=== PATIENT | male | born 1985 | race Two or more races ===

== ENCOUNTER 2016-06-09 16:05 | Emergency (ER) | payer MEDICAID ==
[~2016-06-09] VITALS: Ht 175.3 cm; Wt 97.5 kg
[2016-06-09 16:42] VITALS: BP 134/82
--- NOTE | 2016-06-09 17:11 | Emergency Room Report ---
History of Present Illness General Chief Complaint: Animal Bite Source: Patient Present Illness HPI The patient is a 30-year-old male presenting for squirrel bite and right shoulder pain. The patient states that he was walking on the street when a squirrel jumped up and bit the left middle finger. The patient noted bleeding at that time. The patient denies any pain to the finger. Patient unsure of last tetanus shot. The patient also admits to right shoulder pain which began 1 month prior while lifting weights. Pain is described as a 5/10 dull ache and is worse with movement of the shoulder. It does not radiate. No numbness or tingling. Pt denies any other symptoms including F, chills, CP, SOB Allergies: Coded Allergies: No Known Allergies (Unverified , 06/09/16) Patient History Past Medical History: see triage record Pertinent Family History: none Reviewed Nursing Documentation: PMH: Agreed, PSxH: Agreed Nursing Documentation-PMH Past Medical History: No Stated History Review of Systems All Other Systems: negative except mentioned in HPI Physical Exam Vital Signs Date Time Temp Pulse Resp B/P Pulse Ox O2 Delivery O2 Flow Rate FiO2 06/09/16 16:33 97.3 86 18 134/82 98 Room Air Sp02 EP Interpretation: reviewed, normal General Appearance: no apparent distress, alert, GCS 15, non-toxic Head: normocephalic, atraumatic Eyes: bilateral eye PERRL, bilateral eye normal inspection ENT: hearing grossly normal, normal pharynx, no angioedema, normal voice Musculoskeletal: back normal, gait/station normal, normal range of motion, tender - TTP over anterior R deltoid Neurologic: alert, oriented x3, responsive, motor strength/tone normal, sensory intact, speech normal Psychiatric: judgement/insight normal, memory normal, mood/affect normal, no suicidal/homicidal ideation Reflexes: 3+ bicep (R), 3+ bicep (L), 3+ tricep (R), 3+ tricep (L), 3+ knee (R) , 3+ knee (L) Skin: warm/dry, normal turgor, abrasions - 1cm abrasion to palmar surface of L 3rd distal digit Lymphatic: no adenopathy Procedures Splinting Splinting : Consent: Verbal Location: R shoulder Splint: sling Pre-Proc Neuro Vasc Exam: normal Post-Proc Neuro Vasc Exam: normal Patient Tolerated: Well Complications: None Medical Decision Making PA Attestation Dr. Sebastian is my supervising physician. Patient management was discussed with my supervising physician Diagnostic Impression: Primary Impression: Bite by animal Additional Impression: Right shoulder strain ER Course The patient is a 30-year-old male presenting for squirrel bite and right shoulder pain. Ddx considered include but not limited to sprain/strain, fracture, contusion, abrasion, laceration, cellulitis Physical exam: Vitals within normal limits. No apparent distress. Right shoulder: Full active range of motion. Sensation intact. No edema or erythema. There is tenderness to palpation over anterior deltoid. No obvious deformity. Left third digit: There is an abrasion of the distal finger. No active bleeding. Sensation intact. No edema Right shoulder is placed in a sling. X-ray of shoulder is unremarkable. The wound is cleaned with normal saline and Betadine. Patient is given a tetanus shot The patient will be discharged home with a prescription for Augmentin and Motrin. Patient is advised to obtain referral for MRI. ER precautions are given Other X-Ray Diagnostic Results Other X-Ray Diagnostic Results : X-Ray Ordered: R shoulder Date: Jun 09, 2016 EP Interpretation: Yes Findings: no fractures, no dislocation, no soft tissue swelling Number of Views: 3 PA Scribe Text I am acting as scribe for my supervising physician. My supervising physician's interpretation of the R shoulder xrays are there are no fractures, dislocations or soft tissue swelling. Last Vital Signs Date Time Temp Pulse Resp B/P Pulse Ox O2 Delivery O2 Flow Rate FiO2 06/09/16 16:33 97.3 86 18 134/82 98 Room Air Status: improved Disposition: HOME, SELF-CARE Condition: Improved Scripts Amoxicillin/Potassium Clav 500-125 Tablet* (AUGMENTIN 500-125 TABLET*) 1 Each Tablet 1 TAB ORAL THREE TIMES A DAY, #15 TAB Prov: TERJAZMYNANLISA P.A. 06/09/16 Ibuprofen* (MOTRIN*) 600 Mg Tablet 600 MG ORAL Q8H Y for For Pain, #30 TAB 0 Refills Prov: TERZIAN,LISA P.A. 06/09/16 TERJAZMYNANSHIELAY P.A. Jun 09, 2016 17:11
[2016-06-09] MEDS: Ketorolac 30mg Inj IM ONE ×2 (17:15→17:47)
[2016-06-09] MEDS ORDERED: TdaP Vaccine 0.5ml Syr IM ONE (17:15)
[2016-06-09] MEDS ORDERED: AUGMENTIN 500-1 EACH ORAL (18:37)
[2016-06-09] MEDS ORDERED: IBUPROFEN600 MG ORAL (18:37)
[2016-06-09 18:42] VITALS: BP 128/76
[2016-06-09 18:51] VITALS: BP 128/76
--- NOTE | 2016-06-10 10:13 | Diagnostic Imaging Report ---
Indication: PAIN Technique: 3 views of the left shoulder Comparison: None Findings: No acute fractures or dislocations. Joint spaces are preserved. Impression: Negative
== END 2016-06-09 18:51 | disposition home or self-care (01) ==
LOC: EMR 17:09
DX: S41.051A Open bite of right shoulder, initial encounter (principal); S61.253A Open bite of left middle finger without damage to nail, initial encounter; S46.911A Strain of unspecified muscle, fascia and tendon at shoulder and upper arm level, right arm, initial encounter; W53.21XA Bitten by squirrel, initial encounter; Y92.89 Other specified places as the place of occurrence of the external cause; Z23 Encounter for immunization
CPT/HCPCS: 29105; 73030; 90471; 90715; 99284; J1885